=== PATIENT | male | born 1995 | race Caucasian/White ===

== ENCOUNTER 2016-08-22 07:46 | Emergency (ER) | payer MEDICAID, OTHER ==
[2016-08-22 08:03] VITALS: BP 126/91; PULSE 88; RESP 18; TEMP 98.1; O2SAT 97
[2016-08-22 08:28] VITALS: BMI 33.3
[2016-08-22] MEDS ORDERED: Oxycodone/Acetaminophen 5/325 mg Tab PO STA (08:31)
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
== END 2016-08-22 10:43 | disposition home or self-care (01) ==
LOC: ED 07:46
DX: S20.212A Contusion of left front wall of thorax, initial encounter (principal); V49.49XA Driver injured in collision with other motor vehicles in traffic accident, initial encounter; Y92.410 Unspecified street and highway as the place of occurrence of the external cause

== ENCOUNTER 2017-04-14 15:54 | Emergency (ER) | payer MEDICAID, OTHER ==
[2017-04-14 16:38] VITALS: BMI 33.3
[2017-04-14] MEDS ORDERED: Sodium Chloride 0.9% 1,000 ML IV STA ×2 (17:07→19:08)
--- NOTE | 2017-04-14 17:22 | ED PDOC ---
Arrival/HPI - General Chief Complaint: GI Problem Time Seen by Provider: 04/14/17 17:06 Historian: Patient - History of Present Illness Narrative History of Present Illness (Text): 04/14/17 17:23 21-year-old male presents today with periumbilical abdominal pain nausea and diarrhea since this morning. Patient denies fevers or chills. Denies chest pain or shortness of breath. Denies URI symptoms. Patient denies headache dizziness or weakness. Denies urinary symptoms. Denies bladder or bowel incontinence. Patient states he woke up this morning with multiple episodes of diarrhea with nausea and pain in the periumbilical region. Patient denies any sick contacts. Patient states he took Zofran for nausea without improvement. Patient states he also took Imodium without improvement. Symptom Onset: Sudden Symptom Course: Unchanged Quality: Aching Severity Level: 4 Past Medical History - Provider Review Nursing Documentation Reviewed: Yes - Travel History Have you recently traveled outside [place] w/in the past 3 mons?: No - Infectious Disease Hx of Infectious Diseases: None - Psychiatric Hx Depression: No Hx Emotional Abuse: No Hx Physical Abuse: No Hx Substance Use: No - Suicidal Assessment Feels Threatened In Home Enviroment: No Family/Social History - Physician Review Nursing Documentation Reviewed: Yes Family/Social History: Unknown Family HX Smoking Status: Never Smoked Hx Alcohol Use: No Hx Substance Use: No Hx Substance Use Treatment: No Allergies/Home Meds Allergies/Adverse Reactions: Allergies No Known Allergies Allergy (Verified 04/14/17 16:37) Review of Systems - Review of Systems Constitutional: absent: Fatigue, Fevers Respiratory: absent: SOB, Cough Cardiovascular: absent: Chest Pain, Palpitations Gastrointestinal: Abdominal Pain, Diarrhea, Nausea. absent: Constipation, Vomiting Genitourinary Male: absent: Dysuria, Frequency Musculoskeletal: absent: Arthralgias, Back Pain, Neck Pain Skin: absent: Rash, Pruritis Neurological: absent: Headache, Dizziness Psychiatric: absent: Anxiety, Depression Physical Exam Vital Signs Reviewed: Yes Vital Signs Temp Pulse Resp BP Pulse Ox 04/14/17 18:00 78 18 117/62 98 04/14/17 16:31 98.6 F 80 18 129/81 97 Temperature: Afebrile Blood Pressure: Normal Pulse: Regular Respiratory Rate: Normal Appearance: Positive for: Well-Appearing, Non-Toxic, Comfortable Pain Distress: None Mental Status: Positive for: Alert and Oriented X 3 - Systems Exam Head: Present: Atraumatic Mouth: Present: Moist Mucous Membranes Nose (Internal): Present: Normal Inspection Neck: Present: Normal Range of Motion Respiratory/Chest: Present: Clear to Auscultation, Good Air Exchange. No: Respiratory Distress, Accessory Muscle Use Cardiovascular: Present: Regular Rate and Rhythm, Normal S1, S2. No: Murmurs Abdomen: Present: Tenderness (+ periumbilical tenderness; no RLQ tenderness; no rebound or guarding.), Normal Bowel Sounds. No: Distention, Peritoneal Signs, Rebound, Guarding Back: Present: Normal Inspection. No: CVA Tenderness, Midline Tenderness, Paraspinal Tenderness Upper Extremity: Present: Normal ROM Lower Extremity: Present: Normal ROM Neurological: Present: GCS=15, Speech Normal Skin: Present: Warm, Dry, Normal Color. No: Rashes Psychiatric: Present: Alert, Oriented x 3 Medical Decision Making ED Course and Treatment: 04/14/17 17:25 Patient is nontoxic well appearing with stable vital signs presenting with periumbilical abdominal pain, Nausea and diarrhea since this morning. CBC: wnl CMP: wnl Lipase: wnl Urinalysis: CAT scan: FINDINGS: Lower thorax: No acute findings. ABDOMEN: Liver: Unremarkable. No mass. Gallbladder and bile ducts: Unremarkable. No calcified stones. No ductal dilation. Pancreas: Unremarkable. No mass. No ductal dilation. Spleen: Unremarkable. No splenomegaly. Adrenals: Unremarkable. No mass. Kidneys and ureters: Unremarkable. No solid mass. No hydronephrosis. Stomach and bowel: Fluid-filled small bowel loops some of which are prominent. Fluid in colon to the level of the rectum. Appendix: No findings to suggest acute appendicitis. PELVIS: Bladder: Unremarkable. No mass. Reproductive: Unremarkable as visualized. ABDOMEN and PELVIS: Intraperitoneal space: Unremarkable. No free air. No significant fluid collection. Bones/joints: No acute fracture. No dislocation. Soft tissues: Unremarkable. Vasculature: Unremarkable. No abdominal aortic aneurysm. Lymph nodes: Multiple mildly enlarged mesenteric lymph nodes. IMPRESSION: CT findings most consistent with mesenteric adenitis and enteritis. Patient reassessment:pt non toxic well appearing; no distress. stable vitals. pt resting comfortably in the ER. vitals stable. abdomen, non tender; Discussed all results with patient in depth Advised increasing fluids. Advised follow-up with primary care physician within the next 2 days. Advised follow-up with a GI specialist. Advised immediate return if symptoms worsen or persist or if new concerning symptoms develop Patient verbalizes understanding of discharge instructions and need for immediate followup. all aspects of this case were discussed the attending of record. Impression: Abdominal pain, diarrhea, enteritis, mesenteric adenitis Motrin every 6 hours as needed for pain Pepcid one tablet daily Increase fluids Follow up with primary care physician within the next 2 days Return immediately if symptoms worsen persist or if new symptoms develop: High fevers, increasing pain, vomiting, diarrhea or any other concerning symptoms develop - Lab Interpretations Lab Results: 04/14/17 17:05 04/14/17 17:05 Lab Results 04/14/17 19:20: Urine Color Yellow, Urine Appearance Clear, Urine pH 6.5, Ur Specific Davis <= 1.005, Urine Protein Negative, Urine Glucose (UA) Negative, Urine Ketones Negative, Urine Blood Negative, Urine Nitrate Negative, Urine Bilirubin Negative, Urine Urobilinogen 0.2, Ur Leukocyte Esterase Negative 04/14/17 17:05: WBC 5.4, RBC 5.99, Hgb 16.0, Hct 47.7, MCV 79.6 L, MCH 26.7, MCHC 33.5, RDW 13.6, Plt Count 178, MPV 11.7 H, Gran % 68.0, Lymph % (Auto) 21.2 L, Walton % (Auto) 10.0 H, Eos % (Auto) 0.6 L, Baso % (Auto) 0.2, Gran # 3.69 , Lymph # 1.2, Walton # 0.5, Eos # 0.0, Baso # 0.01 04/14/17 17:05: Sodium 138, Potassium 3.9, Chloride 102, Carbon Dioxide 24, Anion Gap 16, BUN 14, Creatinine 0.7 L, Est GFR ( Amer) > 60, Est GFR ( Non-Af Amer) > 60, Random Glucose 105, Calcium 10.3, Total Bilirubin 0.7, AST 31 , ALT 31, Alkaline Phosphatase 78, Total Protein 8.5 H, Albumin 4.9 H, Globulin 3.6, Albumin/Globulin Ratio 1.4, Lipase 156 - RAD Interpretation Radiology Orders: 04/14/17 17:06 ABD & PELVIS IV CONTRAST ONLY [CT] Stat - Medication Orders Current Medication Orders: Discontinued Medications Acetaminophen (Tylenol 325mg Tab) 975 mg PO STAT STA Stop: 04/14/17 20:09 Sodium Chloride (Sodium Chloride 0.9%) 1,000 mls @ 999 mls/hr IV .Q1H1M STA Stop: 04/14/17 18:07 Last Admin: 04/14/17 17:36 Dose: 999 mls/hr eMAR Start Stop Document 04/14/17 17:36 EWO (Rec: 04/14/17 17:36 [id number] Intravenous Solution Start Date 04/14/17 Start Time 17:36 End Date 04/14/17 End time 18:36 Total Infusion Time 60 Sodium Chloride (Sodium Chloride 0.9%) 1,000 mls @ 999 mls/hr IV .Q1H1M STA Stop: 04/14/17 20:08 Last Admin: 04/14/17 19:41 Dose: 999 mls/hr eMAR Start Stop Document 04/14/17 19:41 AB (Rec: 04/14/17 19:41 AB [id number]) Intravenous Solution Start Date 04/14/17 Start Time 19:00 End Date 04/14/17 Ketorolac Tromethamine (Toradol) 30 mg IVP STAT STA Stop: 04/14/17 17:23 Last Admin: 04/14/17 17:36 Dose: 30 mg MAR Pain Assessment Document 04/14/17 17:36 EWO (Rec: 04/14/17 17:36 [id number] Pain Reassessment Is this a pain reassessment? No Sleep Is patient sleeping during reassessment? No Presence of Pain Presence of Pain Yes Pain Scale Used Pain Scale Used Numeric Location Pain Location Body Site Abdomen IVP Administration Document 04/14/17 17:36 EWO (Rec: 04/14/17 17:36 [id number] Charges for Administration # of IVP Administrations 1 Ondansetron HCl (Zofran Inj) 4 mg IVP STAT STA Stop: 04/14/17 17:08 Last Admin: 04/14/17 17:36 Dose: 4 mg IVP Administration Document 04/14/17 17:36 EWO (Rec: 04/14/17 17:36 [id number]) Charges for Administration # of IVP Administrations 1 Disposition/Present on Arrival - Present on Arrival Any Indicators Present on Arrival: No History of DVT/PE: No History of Uncontrolled Diabetes: No Urinary Catheter: No History of Decub. Ulcer: No History Surgical Site Infection Following: None - Disposition Have Diagnosis and Disposition been Completed?: Yes Diagnosis: Enteritis, Abdominal pain, Diarrhea Disposition: HOME/ ROUTINE Disposition Time: 19:23 Patient Plan: Discharge Patient Problems: Current Active Problems Problem Status Onset Abdominal pain Acute Diarrhea Acute Enteritis Acute Condition: GOOD Discharge Instructions (ExitCare): Acute Diarrhea (ED), Acute Abdominal Pain ( ED), Enteritis (ED) Additional Instructions: Motrin every 6 hours as needed for pain Pepcid one tablet daily Increase fluids BRAT DIET: Bananas, Rice, Apples, Diaz Follow up with primary care physician within the next 2 days Return immediately if symptoms worsen persist or if new symptoms develop: High fevers, increasing pain, vomiting, diarrhea or any other concerning symptoms develop Prescriptions: Famotidine [Pepcid] 20 mg PO DAILY #30 tab Ibuprofen [Motrin] 600 mg PO Q6H PRN #20 tab PRN Reason: pain/fever reduction Referrals: Ramirez Calix MD [Primary Care Provider] - Follow up with primary Elvin Field MD [Medical Doctor] - Follow up with primary Forms: [employer] (Bulgarian), WORK NOTE
[2017-04-14 17:57] LABS: MEAN CELL VOLUME 79.6 fl (80.0-105.0); MEAN CORPUSCULAR HEMOGLOBIN 26.7 pg (25.0-35.0); MEAN CORPUSCULAR HGB CONC 33.5 g/dl (31.0-37.0); RBC 5.99 10^6/uL (3.5-6.1); RED CELL DISTRIBUTION WIDTH 13.6 % (11.5-14.5); WHITE BLOOD COUNT 5.4 10^3/ul (4.5-11.0)
[2017-04-14 17:58] LABS: MEAN PLATELET VOLUME 11.7 fl (7.0-11.0)
[2017-04-14 18:01] LABS: BASO # 0.01 K/mm3 (0.0-2.0); BASO % 0.2 % (0.0-3.0); EOS % 0.6 % (1.5-5.0); GRAN # 3.69 (1.4-6.5); LYMPH # 1.2 (1.2-3.4); LYMPH % 21.2 % (22.0-35.0); MONO # 0.5 (0.1-0.6)
[2017-04-14 18:05] LABS: ALBUMIN 4.9 g/dL (3.0-4.8); ALT/SGPT 31 U/L (7-56); AST/SGOT 31 U/L (17-59); BLOOD UREA NITROGEN 14 mg/dL (7-21); CALCIUM 10.3 mg/dL (8.4-10.5); GFR AFRICAN-AMERICAN > 60; GFR NON-AFRICAN AMERICAN > 60; LIPASE 156 U/L (23-300)
[2017-04-14] MEDS ORDERED: Iohexol 350 MG/100 ML VIAL ONE (18:17)
--- NOTE | 2017-04-14 19:01 | CT ---
EXAM: CT Abdomen and Pelvis With Intravenous Contrast CLINICAL HISTORY: 21 years old, male; Pain; Abdominal pain; Acute; Additional info: Abd pain TECHNIQUE: Axial computed tomography images of the abdomen and pelvis with intravenous contrast. All CT scans at this facility use one or more dose reduction techniques, viz.: automated exposure control; ma/kV adjustment per patient size (including targeted exams where dose is matched to indication; i.e. head); or iterative reconstruction technique. Coronal and sagittal reformatted images were created and reviewed. CONTRAST: 100 mL of OMNI 350 administered intravenously. COMPARISON: No relevant prior studies available. FINDINGS: Lower thorax: No acute findings. ABDOMEN: Liver: Unremarkable. No mass. Gallbladder and bile ducts: Unremarkable. No calcified stones. No ductal dilation. Pancreas: Unremarkable. No mass. No ductal dilation. Spleen: Unremarkable. No splenomegaly. Adrenals: Unremarkable. No mass. Kidneys and ureters: Unremarkable. No solid mass. No hydronephrosis. Stomach and bowel: Fluid-filled small bowel loops some of which are prominent. Fluid in colon to the level of the rectum. Appendix: No findings to suggest acute appendicitis. PELVIS: Bladder: Unremarkable. No mass. Reproductive: Unremarkable as visualized. ABDOMEN and PELVIS: Intraperitoneal space: Unremarkable. No free air. No significant fluid collection. Bones/joints: No acute fracture. No dislocation. Soft tissues: Unremarkable. Vasculature: Unremarkable. No abdominal aortic aneurysm. Lymph nodes: Multiple mildly enlarged mesenteric lymph nodes. IMPRESSION: CT findings most consistent with mesenteric adenitis and enteritis. Remainder of findings as above.
[2017-04-14 19:09] LABS: ALB/GLOB RATIO 1.4 (1.1-1.8)
[2017-04-14 19:43] LABS: PH,URINE 6.5 (4.7-8.0); URINE BILIRUBIN NEGATIVE (NEGATIVE); URINE BLOOD NEGATIVE (NEGATIVE); URINE GLUCOSE (UA) NEGATIVE (NEGATIVE); URINE LEUKOCYTE ESTERASE NEGATIVE Leu/uL (NEGATIVE); URINE NITRATE NEGATIVE (NEGATIVE); URINE PROTEIN NEGATIVE mg/dL (<30 mg/dL); URINE UROBILINOGEN 0.2 E.U./dL (<1 E.U./dL)
[2017-04-14 20:01] LABS: URINE APPEARANCE CLEAR (CLEAR); URINE COLOR YELLOW (YELLOW)
[2017-04-14 20:45] VITALS: BP 110/72; PULSE 80; RESP 17; TEMP 98.3; O2SAT 99
== END 2017-04-14 20:30 | disposition home or self-care (01) ==
LOC: ED 15:54
DX: K52.9 Noninfective gastroenteritis and colitis, unspecified (principal)
CPT/HCPCS: 74177; 80053; 81003; 83690; 85025; 96361; 96374; 96375; 99284; J1885; J2405; J7040; Q9967

== ENCOUNTER 2018-02-12 20:19 | Emergency (ER) | payer MEDICAID ==
[2018-02-12 20:19] VITALS: BMI 33.3
[2018-02-12 20:25] VITALS: RESP 18; TEMP 97.9
--- NOTE | 2018-02-12 20:33 | ED PDOC ---
Arrival/HPI <Nick Friedman - Last Filed: 02/12/18 21:51> - General Historian: Patient - History of Present Illness Narrative History of Present Illness (Text): 02/12/18 20:27 22 y/o male, no significant pmh, nkda, c/o rt. foot pain s/p twisted this morning x 1 day. Aching pain, aggravated by walking, no numbness or tingling, no calf or thigh pain, no rash, no other medical or psychological complaints. <Sean Marquez - Last Filed: 02/12/18 22:01> - General Chief Complaint: Lower Extremity Problem/Injury Past Medical History - Provider Review Nursing Documentation Reviewed: Yes - Infectious Disease Hx of Infectious Diseases: None - Psychiatric Hx Depression: No Hx Emotional Abuse: No Hx Physical Abuse: No Hx Substance Use: No - Suicidal Assessment Feels Threatened In Home Enviroment: No <Sean Marquez - Last Filed: 02/12/18 22:01> Family/Social History - Physician Review Nursing Documentation Reviewed: Yes Family/Social History: Unknown Family HX Smoking Status: Never Smoked Hx Alcohol Use: No Hx Substance Use: No Hx Substance Use Treatment: No <Sean Marquez - Last Filed: 02/12/18 22:01> Allergies/Home Meds <Nick Friedman - Last Filed: 02/12/18 21:51> <Sean Marquez - Last Filed: 02/12/18 22:01> Allergies/Adverse Reactions: Allergies No Known Allergies Allergy (Verified 04/14/17 16:37) Review of Systems - Review of Systems Constitutional: absent: Fatigue, Fevers Eyes: absent: Vision Changes ENT: absent: Hearing Changes Respiratory: absent: SOB, Cough Cardiovascular: absent: Chest Pain Gastrointestinal: absent: Nausea, Vomiting Musculoskeletal: Arthralgias. absent: Back Pain Skin: absent: Rash, Pruritis Neurological: absent: Headache Psychiatric: absent: Anxiety, Depression, Suicidal Ideation <Sean Marquez - Last Filed: 02/12/18 22:01> Physical Exam Vital Signs Temp Pulse Resp BP Pulse Ox 02/12/18 20:22 97.9 F 85 18 127/85 97 <Nick Friedman - Last Filed: 02/12/18 21:51> Vital Signs Reviewed: Yes Vital Signs Temp Pulse Resp BP Pulse Ox 02/12/18 20:22 97.9 F 85 18 127/85 97 Temperature: Afebrile Blood Pressure: Normal Pulse: Regular Respiratory Rate: Normal Appearance: Positive for: Well-Appearing, Non-Toxic, Comfortable Pain Distress: Mild Mental Status: Positive for: Alert and Oriented X 3 - Systems Exam Head: Present: Atraumatic, Normocephalic Pupils: Present: PERRL Extroacular Muscles: Present: EOMI Conjunctiva: Present: Normal Mouth: Present: Moist Mucous Membranes Neck: Present: Normal Range of Motion Respiratory/Chest: Present: Clear to Auscultation, Good Air Exchange. No: Respiratory Distress, Accessory Muscle Use Cardiovascular: Present: Regular Rate and Rhythm, Normal S1, S2. No: Murmurs Abdomen: No: Tenderness, Distention, Peritoneal Signs Back: Present: Normal Inspection Upper Extremity: Present: Normal Inspection. No: Cyanosis, Edema Lower Extremity: Present: Normal Inspection, Other (Rt. ankle/foot: +ttp on the rt. lateral dorsum foot with very mild swelling, no ankle tenderness or swelling, negative claudy and mckinney signs, FROM without limitation, sensation intact, motor 5/5, +DPPT pulses, capillary refill< 2 seconds, neurovascular intact. ). No: Edema Neurological: Present: GCS=15, CN II-XII Intact, Speech Normal Skin: Present: Warm, Dry, Normal Color. No: Rashes Psychiatric: Present: Alert, Oriented x 3, Normal Insight, Normal Concentration <Sean Marquez - Last Filed: 02/12/18 22:01> Medical Decision Making - RAD Interpretation Radiology Orders: 02/12/18 20:48 FOOT RIGHT 3 VIEWS ROUTINE [RAD] Stat - Medication Orders Current Medication Orders: Discontinued Medications Ibuprofen (Motrin Tab) 600 mg PO STAT STA Stop: 02/12/18 20:49 Last Admin: 02/12/18 20:57 Dose: 600 mg MAR Pain/Vitals Document 02/12/18 20:57 AD (Rec: 02/12/18 20:57 AD [facility] [place]-ER-20) Pain Reassessment Is This A Pain ReAssessment? No Presence of Pain Presence of Pain Yes Pain Scale Used Protocol: PSCALES Pain Scale Used Numeric <Nick Friedman - Last Filed: 02/12/18 21:51> ED Course and Treatment: 02/12/18 20:34 -Xray -motrin -Observe and reassess 02/12/18 21:58 -Rt. foot xray ER wet read show no fracture or dislocation. -Pt. feels better, nikolas wrap, crutches, will discharge home. -Discharge home with motrin, nikolas wrap, crutches, non-weight bearing, ice compression, follow up with your own pmd and teletypesetter operator within2 days, return to the ER for any new or worsening signs or symptoms. - RAD Interpretation Radiology Orders: Rt. foot xray: Customer Specialist: Radiologist <Sean Marquez - Last Filed: 02/12/18 22:01> - PA / SOFTWARE PROGRAM MANAGER / Resident Statement JEANNE has reviewed & agrees with the documentation as recorded. <Nick Friedman - Last Filed: 02/12/18 21:51> - PA / SOFTWARE PROGRAM MANAGER / Resident Statement JEANNE has reviewed & agrees with the documentation as recorded. <Sean Marquez - Last Filed: 02/12/18 22:01> Disposition/Present on Arrival <Nick Friedman - Last Filed: 02/12/18 21:51> - Present on Arrival Any Indicators Present on Arrival: No History of DVT/PE: No History of Uncontrolled Diabetes: No Urinary Catheter: No History of Decub. Ulcer: No History Surgical Site Infection Following: None - Disposition Have Diagnosis and Disposition been Completed?: Yes Disposition Time: 22:00 Patient Plan: Discharge <Sean Marquez - Last Filed: 02/12/18 22:01> - Disposition Diagnosis: Foot sprain Disposition: HOME/ ROUTINE Condition: GOOD Additional Instructions: -Discharge home with motrin, nikolas wrap, crutches, non-weight bearing, ice compression, follow up with your own pmd and teletypesetter operator within2 days, return to the ER for any new or worsening signs or symptoms. Prescriptions: Ibuprofen [Motrin] 600 mg PO QID PRN #30 tab PRN Reason: Other Referrals: Ramirez Calix MD [Primary Care Provider] - Follow up with primary Orville Baker DPM [Staff Provider] - Follow up with primary Forms: [employer] (Armenian), WORK NOTE
[2018-02-12 23:21] VITALS: BP 127/78; PULSE 84; O2SAT 100
--- NOTE | 2018-02-13 09:03 | RAD ---
Date of service: 02/12/2018 PROCEDURE: Right Foot Radiographs. HISTORY: rt. foot lateral inversion COMPARISON: None. FINDINGS: BONES: No acute fracture or destructive bony lesion identified. JOINTS: No subluxation or dislocation appreciated. SOFT TISSUES: Normal. OTHER FINDINGS: None. IMPRESSION: Normal right foot radiographs.
== END 2018-02-12 22:00 | disposition home or self-care (01) ==
LOC: ED 20:19
DX: S93.601A Unspecified sprain of right foot, initial encounter (principal); X50.0XXA Overexertion from strenuous movement or load, initial encounter; Y92.9 Unspecified place or not applicable

== ENCOUNTER 2018-03-21 23:32 | Emergency (ER) | payer MEDICAID ==
[2018-03-21 23:33] VITALS: BMI 33.3
[2018-03-21 23:40] VITALS: TEMP 97.7
--- NOTE | 2018-03-22 00:42 | ED PDOC ---
Arrival/HPI - General Chief Complaint: Lower Extremity Problem/Injury Time Seen by Provider: 03/21/18 23:37 Historian: Patient - History of Present Illness Narrative History of Present Illness (Text): 03/22/18 00:45 22-year-old male reports injuring his right foot when he fell down the stairs are to arrival. Otherwise: (-) other injury, (-) numbness, (-) decrease in ROM, (-) other complaints. Past Medical History - Infectious Disease Hx of Infectious Diseases: None - Psychiatric Hx Depression: No Hx Emotional Abuse: No Hx Physical Abuse: No Hx Substance Use: No - Suicidal Assessment Feels Threatened In Home Enviroment: No Family/Social History Family/Social History: No Known Family HX Smoking Status: Never Smoked Hx Alcohol Use: No Hx Substance Use: No Hx Substance Use Treatment: No Allergies/Home Meds Allergies/Adverse Reactions: Allergies No Known Allergies Allergy (Verified 03/21/18 23:40) Review of Systems - Review of Systems Constitutional: absent: Fatigue, Fevers Musculoskeletal: Arthralgias. absent: Back Pain, Neck Pain Skin: absent: Rash, Pruritis, Skin Lesions Neurological: absent: Headache, Dizziness Physical Exam Vital Signs Temp Pulse Resp BP Pulse Ox 03/21/18 23:38 97.7 F 77 16 117/75 97 Temperature: Afebrile Blood Pressure: Normal Pulse: Regular Respiratory Rate: Normal Appearance: Positive for: Well-Appearing, Non-Toxic, Comfortable Pain Distress: Mild Mental Status: Positive for: Alert and Oriented X 3 - Systems Exam Upper Extremity: Present: Normal Inspection. No: Edema Lower Extremity: Present: NORMAL PULSES, Normal ROM, Tenderness (+tenderness with mild edema to the dorsal lateral R foot), Neurovascularly Intact, Capillary Refill < 2 s. No: Deformity, Temperature Abnormalties Neurological: Present: GCS=15, CN II-XII Intact, Speech Normal, Motor Func Grossly Intact, Normal Sensory Function Skin: Present: Warm, Dry, Normal Color. No: Rashes Psychiatric: Present: Alert, Oriented x 3, Normal Insight, Normal Concentration Medical Decision Making ED Course and Treatment: 03/22/18 00:43 Plan : - naprosyn - XR R ankle - XR R foot XR right ankle and foot: no fracture, no dislocation, as read by PA Patient advised that official radiology read of XR is still pending and will call the patient if there is any discrepancy within 24 hours. X-ray results discussed with the patient in great detail. Diagnosis of foot sprain discussed with the patient in great detail. Advised rest, ice, elevate and nsaids for pain. Shorty wrap applied. Patient offered curtches, but he refused, is asking for a cane instead. Advised to follow up with ortho referral in 1-2 days without fail. Advised to take medication as prescribed. Return to the emergency room at any time for any new or worsening symptoms. Patient states he fully agrees with and understands discharge instructions. States that he agrees with the plan and disposition. Verbalized and repeated discharge instructions and plan. I have given the patient opportunity to ask any additional questions. - RAD Interpretation Radiology Orders: 03/21/18 23:40 ANKLE RIGHT 3 VIEWS ROUTINE [RAD] Stat FOOT RIGHT 3 VIEWS ROUTINE [RAD] Stat - PA / GRAIN UNLOADER / Resident Statement MD/DO has reviewed & agrees with the documentation as recorded. Disposition/Present on Arrival - Present on Arrival Any Indicators Present on Arrival: No History of DVT/PE: No History of Uncontrolled Diabetes: No Urinary Catheter: No History of Decub. Ulcer: No History Surgical Site Infection Following: None - Disposition Have Diagnosis and Disposition been Completed?: Yes Diagnosis: Foot sprain Disposition: HOME/ ROUTINE Disposition Time: 00:40 Patient Plan: Discharge Patient Problems: Current Active Problems Problem Status Onset Foot sprain Acute Condition: STABLE Discharge Instructions (ExitCare): Foot Sprain (DC) Additional Instructions: Thank you for letting us take care of you today. You were treated for foot sprain. The emergency medical care you received today was directed at your acute symptoms. If you were prescribed any medication, please fill it and take as directed. It may take several days for your symptoms to resolve. Return to the Emergency Department if your symptoms worsen, do not improve, or if you have any other problems. Please contact your doctor in 2 days for re-evaluation and follow up / or call one of the physicians/clinics you have been referred to that are listed on the Patient Visit Information form that is included in your discharge packet. Bring any paperwork you were given at discharge with you along with any medications you are taking to your follow up visit. Our treatment cannot replace ongoing medical care by a primary care provider (PCP) outside of the emergency department. Thank you for allowing the [facility] team to be part of your care today. If you had an X-Ray : A Radiologist will review the ED reading if any change in treatment is needed we will contact you. Prescriptions: Naproxen 500 mg PO BID PRN #20 tablet PRN Reason: Pain, Moderate (4-7) Referrals: Alexis Roth, DO [Staff Provider] - Follow up with primary Forms: [employer] ([place]i), WORK NOTE
[2018-03-22] MEDS ORDERED: Naproxen 550 mg Tab PO STA (00:49)
[2018-03-22 01:27] VITALS: BP 118/74; PULSE 71; RESP 18; O2SAT 100
--- NOTE | 2018-03-22 11:14 | RAD ---
Date of service: 03/21/2018 PROCEDURE: Right Foot Radiographs. HISTORY: r/o Fx COMPARISON: None. FINDINGS: BONES: Normal. No fracture. JOINTS: Normal. SOFT TISSUES: Normal. OTHER FINDINGS: None. IMPRESSION: Normal right foot radiographs.
--- NOTE | 2018-03-22 11:14 | RAD ---
Date of service: 03/21/2018 PROCEDURE: Right Ankle Radiographs. HISTORY: r/o fx COMPARISON: None available. FINDINGS: BONES: Normal. No fracture. JOINTS: Normal. No osteoarthritis. Ankle mortise maintained. Talar dome intact SOFT TISSUES: Normal. OTHER FINDINGS: None. IMPRESSION: Normal right ankle radiographs.
== END 2018-03-22 01:05 | disposition home or self-care (01) ==
LOC: ED 23:32
DX: S93.601A Unspecified sprain of right foot, initial encounter (principal); W10.9XXA Fall (on) (from) unspecified stairs and steps, initial encounter